=== PATIENT | male | born 1995 | race Caucasian/White ===

== ENCOUNTER 2022-02-02 17:39 | Emergency (ER) | payer OTHER ==
[~2022-02-02] VITALS: Ht 182.9 cm; Wt 72.1 kg
[2022-02-02] MEDS ORDERED: AMOX TR-K CLV1 EAC1 PO (19:41)
== END 2022-02-02 20:01 | disposition home or self-care (01) ==
LOC: ED 17:39
DX: K02.9 Dental caries, unspecified (principal); Z88.5 Allergy status to narcotic agent
CPT/HCPCS: 99282

== ENCOUNTER 2022-07-08 06:44 | Emergency (ER) | payer OTHER ==
[~2022-07-08] VITALS: Ht 182.9 cm; Wt 67.6 kg
[~2022-07-08 06:44] MED LIST: AMOX TR-K CLV1 EAC1 PO
[2022-07-08] MEDS ORDERED: NAPROSYN500 MG PO (08:28)
== END 2022-07-08 08:33 | disposition home or self-care (01) ==
LOC: ED 06:44
DX: U07.1 COVID-19 (principal); Z88.5 Allergy status to narcotic agent
CPT/HCPCS: 87502; 99283; A9270; C9803; U0003